=== PATIENT | male | born 1990 | race Caucasian/White ===

== ENCOUNTER 2017-06-08 10:38 | Emergency (ER) | payer SELFPAY ==
[~2017-06-08] VITALS: Ht 170.2 cm; Wt 58.1 kg
[~2017-06-08 10:38] MED LIST: INSU100S45
--- NOTE | 2017-06-08 10:39 | NUR ---
PT BIBA FOR LOW BLOOD GLUCOSE LEVELS
[2017-06-08 10:40] VITALS: BP 129/86
--- NOTE | 2017-06-08 10:50 | NUR ---
DR HICKS BEDSIDE TO EXAM PT. MILK AND JUICE PROVIDED FOR PT. PT IS DRINKING WELL.
--- NOTE | 2017-06-08 11:00 | NUR ---
PT RECIEVED 250ML OF D10 PER [facility], DR PABLO NOTIFIED
[2017-06-08 11:12] LABS: EOSINOPHILS # (AUTO) 0.1 K/uL (0-0.4); EOSINOPHILS % (AUTO) 1.5 % (0.0-4.0); HEMOGLOBIN 13.2 g/dL (12.0-18.0); MONOCYTES # (AUTO) 0.4 K/uL (0.8-1.0); NEUTROPHILS # (AUTO) 3.9 K/uL (1.8-7.7); WHITE BLOOD COUNT (AUTO) 6.1 K/uL (4.8-10.8)
[2017-06-08 11:13] LABS: BILIRUBIN,URINE NEGATIVE (NEGATIVE); BLOOD, URINE 1+ (NEGATIVE); COLOR,URINE YELLOW (YELLOW); LEUKOCYTE ESTERASE ,URINE NEGATIVE (NEGATIVE); NITRITE, URINE NEGATIVE (NEGATIVE); UGLUCOSE 3+ (NEGATIVE)
[2017-06-08 11:16] LABS: BASOPHILS # (AUTO) 0.3 K/uL (0.00-0.22); BASOPHILS % (AUTO) 4.1 % (0.0-2.0); HEMATOCRIT 39.2 % (36-52); LYMPHOCYTES # (AUTO) 1.4 K/uL (2.0-11.5); LYMPHOCYTES % (AUTO) 23.1 % (20.5-51.1); MEAN CORPUSCULAR HEMOGLOBIN 28 pg (27-31); MEAN CORPUSCULAR HGB CONC 34 g/dL (33-37); MEAN CORPUSCULAR VOLUME 84 fL (80-94); MONOCYTES % (AUTO) 6.3 % (1.7-9.3); PLATELET COUNT (AUTO) 290 K/uL (140-450); RED BLOOD CELL COUNT(AUTO) 4.69 MIL/uL (4.20-6.10); RED CELL DISTRIBUTION WIDTH 11.9 % (11.6-13.7)
[2017-06-08 11:17] LABS: APPEARANCE,URINE SLIGHTLY HAZY (CLEAR)
[2017-06-08 11:26] LABS: RBC,URINE 3-10 (FEW) /HPF (0-5); URINE AMORPHOUS URATE 1+ /HPF (None Seen); WBC,URINE 0-5 (RARE) /HPF (0-5)
[2017-06-08 11:28] LABS: ANION GAP 11.3 (8-16); CARBON DIOXIDE 26.4 mmol/L (21-32); CREATININE 0.8 mg/dL (0.7-1.3); POTASSIUM 3.7 mmol/L (3.5-5.1)
--- NOTE | 2017-06-08 12:02 | NUR ---
BS finger stick repeated. Dr. Wynne was notified.
--- NOTE | 2017-06-08 13:40 | NUR ---
Patient discharged with v/s stable. Written and verbal after care instructions given and explained. Patient verbalized understanding. Ambulatory with steady gait. All questions addressed prior to discharge. Advised to follow up with PMD.
[2017-06-08 13:41] VITALS: BP 121/75
== END 2017-06-08 13:40 | disposition home or self-care (01) ==
LOC: MED 10:38
DX: E10.649 Type 1 diabetes mellitus with hypoglycemia without coma (principal); Z79.899 Other long term (current) drug therapy
CPT/HCPCS: 36415; 80048; 81001; 82948; 85025; 99284

== ENCOUNTER 2017-08-12 17:25 | Emergency (ER) | payer MEDICAID ==
[~2017-08-12] VITALS: Ht 165.1 cm; Wt 58.1 kg
[2017-08-12 17:28] VITALS: BP 130/77
[2017-08-12] MEDS: KETOROLAC 60 MG/2 ML VIAL IM ONE (18:36)
[2017-08-12] MEDS: ceFAZolin 1,000 MG VIAL IM ONE (18:36)
[2017-08-12 20:19] VITALS: BP 118/63
== END 2017-08-12 20:19 | disposition home or self-care (01) ==
LOC: MED 17:25
DX: L03.315 Cellulitis of perineum (principal); E11.9 Type 2 diabetes mellitus without complications; Z79.899 Other long term (current) drug therapy
CPT/HCPCS: 82948; 96372; 99284; J0690; J1885